=== PATIENT | male | born 1945 | race Caucasian/White ===

== ENCOUNTER → 2016-09-30 | Outpatient (CLI) | payer MEDICARE, OTHER ==
[~2016-09-30] MED LIST: ALEVE 220MG220 MG PO; AZO-STANDARD95 MG PO; CIPRO 500MG TA500 MG PO; COLACE 100100 MG/CAP PO; FLOMAX 0.40.4 MG/CAP PO; LIPITOR 10MG10 MG PO; NORCO 325 MG-51 TAB PO; PRINIVIL2.5 MG PO
== END ==
LOC: COL.LAB 07:34
PROVIDERS: Internal Medicine
DX: E78.2 Mixed hyperlipidemia (principal)

== ENCOUNTER → 2017-04-28 | Outpatient (REF) | LOC: ZLAB.WCH 20:47 | DX: Z01.89 Encounter for other specified special examinations (principal) | CPT/HCPCS: G0103 ==

== ENCOUNTER → 2018-04-29 | Outpatient (REF) ==
[2018-04-29 16:58] LABS: THYROID STIMULATING HORMONE 2.37 uIU/mL (0.465-4.680)
[2018-04-29 17:02] LABS: PSA-TOTAL 3.43 ng/mL (0-4)
== END ==
LOC: ZLAB.WCH 16:14
PROVIDERS: Internal Medicine
DX: Z01.89 Encounter for other specified special examinations (principal)
CPT/HCPCS: G0103